=== PATIENT | male | born 1965 | race Caucasian/White ===

== ENCOUNTER 2025-04-25 08:20 | Day surgery (SDC) | payer OTHER ==
[~2025-04-25] VITALS: Ht 182.9 cm; Wt 81.0 kg
[~2025-04-25 08:20] MED LIST: ATOR10 PO; Aspir 8181 MG PO; LOSA25 PO; OMEPRAZOLE20 M1 PO; VITAMIN D325 MC3 PO
[2025-04-25] MEDS ORDERED: METO25ER PO (09:13)
[2025-04-25 09:17] VITALS: BP 135/93
[2025-04-25] MEDS ORDERED: Verapamil HCL 2.5 MG/ML 2ML Injection ONE (13:19)
[2025-04-25] MEDS ORDERED: NS 250 ML IV ONE (13:20)
[2025-04-25] MEDS ORDERED: NS 1,000 ML IV ONE ×2 (13:20→13:21)
[2025-04-25] MEDS ORDERED: Heparin Sodium 1000 Units/ML 10ML MDV ONE ×2 (13:20→13:21)
[2025-04-25] MEDS ORDERED: Nitroglycerin 2 MG/20 ML BTL ONE (13:20)
[2025-04-25] MEDS ORDERED: FentaNYL Citrate 50 MCG/ML 2 ML Injection ONE (13:46)
[2025-04-25] MEDS ORDERED: Midazolam HCl 1MG / ML 2ML Vial ONE (13:47)
[2025-04-25 15:04] VITALS: BP 126/95
[2025-04-25 15:15] VITALS: BP 147/85
[2025-04-25] MEDS ORDERED: FARXIGA10 MG PO (15:25)
[2025-04-25] MEDS ORDERED: ENTRESTO 24 MG1 EACH PO (15:25)
[2025-04-25 15:39] VITALS: BP 136/92
--- NOTE | 2025-04-25 15:58 | NUR ---
ECHOCARDIOGRAM FINISHED
--- NOTE | 2025-04-25 16:03 | NUR ---
2 CC AIR RELEASED FROM TR [facility], NO BLEEDING NOTED
--- NOTE | 2025-04-25 16:08 | NUR ---
3 CC AIR RELEASEXD
--- NOTE | 2025-04-25 16:09 | NUR ---
3 CC AIR RELEASED FROM TR [facility], NO BLEEDING NOTED
--- NOTE | 2025-04-25 16:16 | NUR ---
ALL REMAINING AIR RELEASED FROM TR [facility], NO BLEEDING NOTED
--- NOTE | 2025-04-25 16:43 | NUR ---
DISCHARGE INSTRUCTIONS REVIEWED WITH PT AND . BOTH VERBALIZE UNDERSTANDING OF INSTRUCTIONS. PT GETTING DRESSED AT THIS TIME, WITH ASSIST FROM .
--- NOTE | 2025-04-25 16:50 | NUR ---
PT DRESSED, TR BAND REMOVED. SITE CLEANSED AND CLOTH DOT PLACED. ARM BOARD ON R ARM. SALINE LOCK REMOVED WITH CATHETER INTACT. DRESSING APPLIED. PT TO PRIVATE VEHICLE WITH PER W/C.
== END 2025-04-25 16:55 | disposition home or self-care (01) ==
LOC: MHTC 08:20
DX: I25.10 Atherosclerotic heart disease of native coronary artery without angina pectoris (principal); I25.82 Chronic total occlusion of coronary artery; I42.0 Dilated cardiomyopathy; I50.20 Unspecified systolic (congestive) heart failure; K21.9 Gastro-esophageal reflux disease without esophagitis; G47.33 Obstructive sleep apnea (adult) (pediatric); F17.210 Nicotine dependence, cigarettes, uncomplicated; G89.29 Other chronic pain; M54.50 Low back pain, unspecified; Z79.82 Long term (current) use of aspirin; Z79.899 Other long term (current) drug therapy
CPT/HCPCS: 76937; 85347; 93460; 99152; 99153; A9270; C1769; C1887; C1894; C8929; J1644; J2250; J3010; J7030; J7050; Q9957; Q9967